=== PATIENT | male | born 1980 | race African-American/Black ===

== ENCOUNTER 2018-01-01 09:36 | Emergency (ER) | payer BC ==
[2018-01-01 11:10] VITALS: BP 123/76
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
== END 2018-01-01 10:40 | disposition home or self-care (01) ==
LOC: ED 09:36
DX: Z77.21 Contact with and (suspected) exposure to potentially hazardous body fluids (principal); Z59.0 Homelessness; Z87.891 Personal history of nicotine dependence
CPT/HCPCS: 36415; 86703; 86706; 86803; 87340; 99282